=== PATIENT | female | born 1945 | race Caucasian/White ===

== ENCOUNTER 2016-07-20 06:11 | Emergency (ER) | payer OTHER ==
[2016-07-20 04:09] LABS: BASOPHILS 0.4 %; BASOPHILS ABSOLUTE 0.02 10/3/uL (0.0-0.16); EOSINOPHILS 1.1 %; EOSINOPHILS ABSOLUTE 0.06 10/3/uL (0.0-0.53); ER CBC TAT 0 Hrs 05 Mins; HEMATOCRIT 39.4 % (36.0-48.0); HEMOGLOBIN 13.5 g/dL (12.0-16.0); IMMATURE GRANULOCYTES 0.2 %; IMMATURE GRANULOCYTES ABSOLUTE 0.01 10/3/uL (0.0-0.11); LYMPHOCYTES 23.3 %; MANUAL DIFF NO %; MEAN CORPUS HGB CONC 34.3 g/dL (32.0-36.0); MEAN CORPUSCULAR HEMOGLOB 31.2 pg (26.0-34.0); MEAN PLATELET VOLUME 11.7 fL (9.2-13.0); MONOCYTES ABSOLUTE 0.67 10/3/uL (0.21-1.20); NEUTROPHILS ABSOLUTE 3.53 10/3/uL (2.02-8.40); PLATELET COUNT 158 10/3/uL (150-400); RBC DISTRIBUTION WIDTH 12.4 % (12.0-16.0); RED CELL COUNT 4.33 10/6/uL (4.0-5.6); WHITE BLOOD CELLS 5.6 10/3/uL (4.5-10.5)
[2016-07-20 04:17] LABS: INTERNATIONAL NORMAL RATI 1.1 UNITS (-); PARTIAL THROMBO TIME 34.9 SEC (22.5-37.2); PROTIME (NOT ORD) 14.4 SEC (12.0-14.5)
[2016-07-20 04:24] LABS: BUN (BLOOD UREA NITROGEN) 22 MG/DL (6-23); CALCIUM, SERUM 8.6 MG/DL (8.5-10.4); CHEST PAIN PROFILE TAT 0 Hrs 20 Mins; CHLORIDE, SERUM 109 MMOL/L (96-112); CO2 (CARBON DIOXIDE) 26 MMOL/L (24-34); CREATININE 0.86 MG/DL (0.55-1.02); GFR AFRICAN AMERICAN 80 ML/MIN (>=60); GFR NON AFRICAN AMERICAN 69 ML/MIN (>=60); GLUCOSE, SERUM 103 MG/DL (60-99); POTASSIUM, SERUM 3.8 MMOL/L (3.5-5.3); SODIUM, SERUM 145 MMOL/L (135-148); TROPONIN I <0.02 NG/ML (<0.05)
== END 2016-07-20 06:57 | disposition home or self-care (01) ==
LOC: ER 06:11
PROVIDERS: Hospitalist
DX: R07.89 Other chest pain (principal); I10 Essential (primary) hypertension; F41.9 Anxiety disorder, unspecified; Z95.5 Presence of coronary angioplasty implant and graft
CPT/HCPCS: 71020; 80048; 83735; 84484; 85025; 85610; 85730; 93005; 99285; A9270-GY